=== PATIENT | male | born 1965 | race Caucasian/White ===

== ENCOUNTER 2019-06-15 10:46 | Outpatient (CLI) | payer OTHER, SELFPAY ==
--- NOTE | ~2019-06-15 | XR_ITS ---
EXAMINATION: XR thoracic spine 3V DATE: 06/15/2019 11:06 INDICATION: Dorsalgia, unspecified. TECHNIQUE: 3 views of thoracic spine were obtained. COMPARISON: Chest 2 views 03/21/2012 FINDINGS: There is 7 degrees levocurvature of thoracic spine. Vertebral body heights are normal. Ther e are endplate osteophytes at most levels. There is mildly decreased disc height at multiple levels i n lower thoracic spine. Median sternotomy wires and mediastinal surgical clips are seen, likely from prior coronary artery bypass grafting. IMPRESSION: 1. Mild thoracic spondylosis. Reviewed, dictated and finalized at location A. 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
--- NOTE | ~2019-06-15 | XR_ITS ---
EXAMINATION: XR_CERV2-3V_CR DATE: 06/15/2019 11:06 INDICATION: Neck pain. TECHNIQUE: 3 views of cervical spine were obtained. COMPARISON: Cervical spine MRI 04/23/2014 FINDINGS: There is 4 degrees dextrocurvature of cervical spine. There is kyphosis of lower cervical s pine. Vertebral body heights are normal. There is mildly decreased disc height at C4-C5, moderately d ecreased disc height at C5-C6, and severely decreased disc height at C6-C7. There is multilevel uncov ertebral joint osteoarthritis, severe bilaterally at C5-C6 and C6-C7. There is multilevel facet joint osteoarthritis, severe on the left at C4-C5. There is mild central canal stenosis at C4-C5, C5-C6, a nd C6-C7. No prevertebral soft tissue swelling. Median sternotomy wires and mediastinal surgical clip s are seen, likely from prior coronary artery bypass grafting. IMPRESSION: 1. Severe cervical spondylosis, stable from 04/23/2014. Reviewed, dictated and finalized at location A. 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
== END 2019-06-15 10:47 | disposition home or self-care (01) ==
LOC: ANHIMG 10:52
PROVIDERS: PCP Internal Medicine; Visit Provider Nurse Practitioner
DX: M54.2 Cervicalgia (principal); M54.9 Dorsalgia, unspecified; M47.814 Spondylosis without myelopathy or radiculopathy, thoracic region; M47.812 Spondylosis without myelopathy or radiculopathy, cervical region
CPT/HCPCS: 72040; 72072

== ENCOUNTER 2020-02-23 14:00 | Outpatient (CLI) | payer OTHER, SELFPAY ==
--- NOTE | ~2020-02-23 | US_ITS ---
EXAMINATION: US art doppler w tong BROOKE EXAM DATE: 02/23/2020 14:59 INDICATION: Claudication. Right-sided endarterectomy. Cardiac bypass. Right foot numbness. TECHNIQUE: Segmental pressures and plethysmographic and Doppler waveforms of the brachial and lower e xtremity arteries were obtained. There is no prior study for comparison. FINDINGS: Right and left brachial artery pressures of 124 mm Hg and 132 mm Hg, respectively, are concordant (no rmal difference <= 30 mmHg). The right and left thigh-brachial pressure indices are 0.88, 1.13, resp ectively (normal > 1.2). RIGHT LEG: The ankle-brachial index (YASH) is 0.60 (normal >= 0.9-1). The great toe-brachial index (TBI) is 0.61 (normal >= 0.65). The lower extremity ratios, segmental pressure gradients as follows; Proximal superficial femoral artery:- 0.88 (116 mmHg). Distal superficial femoral artery: ----- 0.80 (106 mmHg). Popliteal: 0.64 (84 mmHg). Dorsalis pedis: 0.40 (53 mmHg). Posterior tibial: 0.60 (79 mmHg). (Normal gradients <= 20-30 mmHg between adjacent levels on the same leg or the same levels on the two legs). Arterial waveforms are essentially monophasic. LEFT LEG: The ankle-brachial index (YASH) is 0.95 (normal >= 0.9-1). The great toe-brachial index (TBI) is 0.57 (normal >= 0.65). The lower extremity ratios, segmental pressure gradients as follows; Proximal superficial femoral artery:- 1.13 (149 mmHg). Distal superficial femoral artery: ----- 1.09 (144 mmHg). Popliteal: 0.90 (119 mmHg). Dorsalis pedis: 0.58 (76 mmHg). Posterior tibial: 0.95 (125 mmHg). (Normal gradients <= 20-30 mmHg between adjacent levels on the same leg or the same levels on the two legs). Arterial waveforms are biphasic. IMPRESSION: 1. Right ankle-brachial index 0.60, moderately decreased. Monophasic waveforms. Possibility of inflo w stenosis (iliac). 2. Left ankle-brachial index 0.95. Biphasic waveforms. 3. Segmental pressures as above. Reviewed, dictated and finalized at location A. IMPRESSION: 1. Right ankle-brachial index 0.60, moderately decreased. Monophasic waveforms . Possibility of inflow stenosis (iliac). 2. Left ankle-brachial index 0.95. Biphasic waveforms. 3. Segmental pressures as above.
== END 2020-02-23 14:01 | disposition home or self-care (01) ==
LOC: ANHIMG 14:04
PROVIDERS: PCP Internal Medicine; Visit Provider Internal Medicine Cardiovascular Disease
DX: I73.9 Peripheral vascular disease, unspecified (principal)
CPT/HCPCS: 93923

== ENCOUNTER 2020-11-30 07:15 | Outpatient (CLI) | payer OTHER, SELFPAY ==
[2020-11-30 08:26] LABS: Basophils Absolute Auto 0.1 K/mm3 (0.0-0.1); Basophils Percent Auto 1.4 % (0.2-1.2); Eosinophils Absolute Auto 0.5 K/mm3 (0-0.3); Eosinophils Percent Auto 6.5 % (0-4.4); Hematocrit 44.4 % (42.0-52.0); Hemoglobin 15.3 g/dL (14.0-18.0); Immature Granulocyte Absolute 0.04 K/mm3 (0.00-0.031); Immature Granulocyte Percent A 0.6 % (0-0.5); Lymphocytes Percent Auto 31.7 % (18.3-44.2); Mean Corpuscular HGB Conc 34.5 g/dl (32-36); Mean Corpuscular Hemoglobin 32.4 pg (26-34); Mean Corpuscular Volume 94.1 fl (80-100); Mean Platelet Volume 8.8 fl (7.4-10.4); Monocytes Absolute Auto 0.5 K/mm3 (0.1-0.6); Monocytes Percent Auto 7.6 % (2.6-8.5); Neutrophils Absolute Auto 3.6 K/mm3 (1.3-6.7); Neutrophils Percent Auto 52.2 % (45.5-73.1); Platelet Count Result 249 k/mm3 (150-375); Red Blood Count 4.72 M/mm3 (4.6-6.20); Red Cell Distribution Width 12.1 % (11.5-14.5); White Blood Count 6.9 K/mm3 (4.5-10.0)
[2020-11-30 10:27] LABS: Alanine Aminotransferase 36 U/L (4-50); Albumin Level 4.2 g/dL (3.5-5.1); Alkaline Phosphatase 87 U/L (38-126); Anion Gap 9 mmol/L (8-16); Aspartate Amino Transferase 27 U/L (17-59); Bilirubin,Total 0.5 mg/dL (0.2-1.3); Blood Urea Nitrogen 16 mg/dL (9-20); Calcium 9.9 mg/dL (8.4-10.2); Carbon Dioxide 23 mmol/L (22-30); Chloride 104 mmol/L (98-107); Cholesterol 173 mg/dL (0-200); Estimated Glomerular Filt Rate > 60; Glucose 104 mg/dL (65-110); HDL Direct 49 mg/dL; Potassium 4.5 mmol/L (3.4-5.0); Sodium 136 mmol/L (137-145); Triglycerides 181 mg/dL (<150)
[2020-11-30 10:46] LABS: LDL Cholesterol Direct 91 mg/dL
[2020-12-02 20:13] LABS: Prostate Specific Antigen 0.4 ng/mL (< OR = 4.0)
== END 2020-11-30 07:16 | disposition home or self-care (01) ==
PROVIDERS: PCP Internal Medicine; Visit Provider Nurse Practitioner
DX: I10 Essential (primary) hypertension (principal); Z12.5 Encounter for screening for malignant neoplasm of prostate
CPT/HCPCS: 36415; 80053; 80061; 84153; 85025; G0103

== ENCOUNTER 2021-12-01 00:53 | Day surgery (SDC) | payer OTHER, SELFPAY ==
[2021-11-21 14:41] VITALS: BMI 29.9
[2021-12-01 09:48] VITALS: BP 150/99; PULSE 76; RESP 19; TEMP 36.5; O2SAT 96
[2021-12-01] MEDS: LACTATED RINGERS 1,000 ML 150 ML IV CONT (09:54)
--- NOTE | 2021-12-01 10:25 | P.PNAN_ITS ---
Anes - Initial Pre Proc Eval Procedure: Operation Date: 12/01/21 11:00 Proposed Procedures p Esophagogastroduodenoscopy - Master Pierson MD Date/Time: 12/01/21 10:25 Surgeon: Master Pierson MD Pre Op Diagnosis: GERD Patient Data Age: 56 Gender: M Height: 1.8 m Weight: 97.8 kg Last Vital Signs Temp 97.7 F 12/01/21 09:48 Pulse 76 12/01/21 09:48 Resp 19 12/01/21 09:48 BP 150/99 H 12/01/21 09:48 Pulse Ox 96 12/01/21 09:48 O2 Del Method Room Air 12/01/21 09:48 Allergies Allergy/AdvReac Type Severity Reaction Status Date / Time cilostazol Allergy Intermediate Palpitation Verified 11/21/21 14:44 s Home Medications Medication Instructions Recorded Confirmed Type amlodipine 5 mg-atorvastatin 40 mg 1 tablet PO DAILY 06/12/19 11/21/21 History tablet lisinopril 20 mg tablet 20 mg PO DAILY 06/12/19 11/21/21 History metoprolol tartrate 25 mg tablet 25 mg PO BID 06/12/19 11/21/21 History aspirin 81 mg tablet,delayed 81 mg PO DAILY 10/01/21 11/21/21 History release (Adult Low Dose Aspirin) nitroglycerin 0.4 mg sublingual 0.4 mg sublingual Q5M PRN Chest 10/01/21 11/21/21 History tablet Pain rivaroxaban 2.5 mg tablet 2.5 mg PO BID 10/01/21 11/21/21 History Pepcid AC 20 mg PO PRN PRN Acid Reflux 11/21/21 11/21/21 History Patient hx anesthesia problems: none Family hx anesthesia problems: none Results Review: All pre-operative results and documents have been reviewed as part of the pre- operative evaluation. [facility] Past Medical History Medical History (Updated 10/01/21 @ 15:13 by Sabina Leigh NP) CAD (coronary artery disease) Hyperlipidemia Hypertension Stenosis of artery of left lower extremity Tobacco abuse Surgical History Surgical History H/O endarterectomy 03/2018 H/O heart bypass surgery Triple 2005 Hx of arthroscopy of knee 2005 Family History Family History Mother Patient's mother is in good health Other Family history of cardiovascular disease Hypertension Social History Social History Smoking packs per day: 1 Smoking cigarettes per day: 20.0 Years smoked: 40 Smoking pack-years: 40.00 Smoking status: Current every day smoker Tobacco type: cigarettes Alcohol intake: current Drinks per week: 42 Alcohol use details: BEERS Substance use: never Substance use type: does not use Living arrangements: with family Spiritual care concerns: No Anes - Eval Final PreProcedure Day of Procedure 12/01/21 10:25 Patient weight: obese Airway: Mallampati scale class II ASA classification: III Anesthesia type and monitoring: general GIVS Results Review: All pre-operative results and documents have been reviewed as part of the pre- operative evaluation. Informed Consent: The patient's anesthetic plan and its attendant risks and benefits were discussed with the patient/family/POA. Questions were solicited and answers provided to the satisfaction of the patient/family/POA.
--- NOTE | 2021-12-01 10:31 | PM.HPGS ---
History of Present Illness History of Present Illness Consent: Risks, benefits, and alternatives have been discussed and questions answered. Patient agrees to proceed with procedure. Chief complaint: GERD Narrative: Frank Jordan is a 56 year old male with intermittent dysphagia to solids, never had egd. Took ppi briefly that helped with indigestion part Review of Systems Constitutional: Constitutional: Denies headache(s) and Denies weakness Eyes: Eyes: Denies blurry vision ENT: Reports Normal hearing present, Denies headache(s) and Denies neck pain Cardiovascular: Cardiovascular: Denies chest pain and Denies dyspnea Respiratory: Respiratory: Denies dyspnea Gastrointestinal: Gastrointestinal: Reports no additional gastrointestinal complaints Genitourinary: Genitourinary: Denies dysuria Musculoskeletal: Musculoskeletal: Denies neck pain Integumentary/Breasts: Skin/Breast: Denies dry skin Neurologic: Reports Normal hearing present, Denies headache(s) and Denies weakness Psychiatric: Psychiatric: Denies anxiety Endocrine: Endocrine: Denies change in body appearance Hematologic/Lymphatic: Hematologic/Lymphatic: Denies easy bleeding Allergic/Immunologic: Allergic/Immunologic: Denies urticaria PMFSH Past Medical History Medical History (Updated 10/01/21 @ 15:13 by Sabina Leigh NP) CAD (coronary artery disease) Hyperlipidemia Hypertension Stenosis of artery of left lower extremity Tobacco abuse Surgical History Surgical History H/O endarterectomy 03/2018 H/O heart bypass surgery Triple 2005 Hx of arthroscopy of knee 2004 Family History Family History Mother Patient's mother is in good health Other Family history of cardiovascular disease Hypertension Social History Social History Smoking packs per day: 1 Smoking cigarettes per day: 20.0 Years smoked: 40 Smoking pack-years: 40.00 Smoking status: Current every day smoker Tobacco type: cigarettes Alcohol intake: current Drinks per week: 42 Alcohol use details: BEERJose Martin Substance use: never Substance use type: does not use Living arrangements: with family Spiritual care concerns: No Meds Home Medications and Allergies Home Medications Medication Instructions Recorded Confirmed Type amlodipine 5 mg-atorvastatin 40 mg 1 tablet PO DAILY 06/12/19 11/21/21 History tablet lisinopril 20 mg tablet 20 mg PO DAILY 06/12/19 11/21/21 History metoprolol tartrate 25 mg tablet 25 mg PO BID 06/12/19 11/21/21 History aspirin 81 mg tablet,delayed 81 mg PO DAILY 10/01/21 11/21/21 History release (Adult Low Dose Aspirin) nitroglycerin 0.4 mg sublingual 0.4 mg sublingual Q5M PRN Chest 10/01/21 11/21/21 History tablet Pain rivaroxaban 2.5 mg tablet 2.5 mg PO BID 10/01/21 11/21/21 History Pepcid AC 20 mg PO PRN PRN Acid Reflux 11/21/21 11/21/21 History Allergies Allergy/AdvReac Type Severity Reaction Status Date / Time cilostazol Allergy Intermediate Palpitation Verified 11/21/21 14:44 s Vital Signs Vital Signs - 24 hr 12/01/21 09:48 Temperature 97.7 F Pulse Rate 76 Respiratory Rate 19 Blood Pressure 150/99 H Pulse Oximetry 96 Oxygen Delivery Room Air Exam Const: General: comfortable and no acute distress HENMT: General nose exam: Normal nares present Eyes: General: appearance normal, both eyes and all related structures Neck: Neck: no JVD Resp: Auscultation: clear to auscultation bilaterally Cardio: Rate: regular rate Rhythm: regular rhythm GI: Inspection: non-distended GI Palp: Yes Soft to palpation Skin: General skin exam: normal color Neuro: General: gait normal Speech: normal speech Extrem: General: normal to inspection Psych: Mental Status: mental status grossly normal Assessment and
[2021-12-01 10:52] VITALS: BP 114/71; PULSE 76; RESP 24; O2SAT 97
[2021-12-01 11:02] VITALS: BP 118/82; PULSE 73; RESP 17; O2SAT 96
[2021-12-01 11:12] VITALS: BP 128/91; PULSE 72; RESP 20; O2SAT 97
== END 2021-12-01 11:20 | disposition home or self-care (01) ==
PROVIDERS: PCP Internal Medicine; Visit Provider Internal Medicine Gastroenterology
PROC: 0DJ08ZZ Inspection of Upper Intestinal Tract, Via Natural or Artificial Opening Endoscopic (ICD-10-PCS; CPT 43235; principal; 2021-12-01 11:00)
DX: R13.19 Other dysphagia (principal); K21.00 Gastro-esophageal reflux disease with esophagitis, without bleeding; K44.9 Diaphragmatic hernia without obstruction or gangrene; K22.2 Esophageal obstruction; Z95.1 Presence of aortocoronary bypass graft; F17.210 Nicotine dependence, cigarettes, uncomplicated; Z79.01 Long term (current) use of anticoagulants; Z79.82 Long term (current) use of aspirin; I25.118 Atherosclerotic heart disease of native coronary artery with other forms of angina pectoris; E78.5 Hyperlipidemia, unspecified; I10 Essential (primary) hypertension; E66.9 Obesity, unspecified; Z68.30 Body mass index [BMI] 30.0-30.9, adult
CPT/HCPCS: 43239; 43249; 88305; C1726; J2704; J7120

== ENCOUNTER 2023-07-21 10:59 | Outpatient (CLI) | payer OTHER, SELFPAY ==
[2023-07-21 15:02] LABS: Basophils Absolute Auto 0.1 K/mm3 (0.0-0.1); Basophils Percent Auto 1.5 % (0.2-1.2); Eosinophils Absolute Auto 0.9 K/mm3 (0-0.3); Eosinophils Percent Auto 11.6 % (0-4.4); Hemoglobin 15.7 g/dL (14.0-18.0); Immature Granulocyte Absolute 0.02 K/mm3 (0.00-0.031); Immature Granulocyte Percent A 0.3 % (0-0.5); Lymphocytes Absolute Auto 2.54 K/mm3 (0.9-3.2); Lymphocytes Percent Auto 34.7 % (18.3-44.2); Mean Corpuscular HGB Conc 33.4 g/dl (32-36); Mean Corpuscular Volume 98.7 fl (80-100); Mean Platelet Volume 9.3 fl (7.4-10.4); Monocytes Absolute Auto 0.6 K/mm3 (0.1-0.6); Monocytes Percent Auto 8.3 % (2.6-8.5); Neutrophils Absolute Auto 3.2 K/mm3 (1.3-6.7); Neutrophils Percent Auto 43.6 % (45.5-73.1); Platelet Count Result 274 k/mm3 (150-375); Red Blood Count 4.76 M/mm3 (4.6-6.20); Red Cell Distribution Width 12.1 % (11.5-14.5); White Blood Count 7.3 K/mm3 (4.5-10.0)
[2023-07-21 18:07] LABS: Alanine Aminotransferase 34 U/L (6-50); Albumin Level 4.4 g/dL (3.5-5.1); Alkaline Phosphatase 99 U/L (38-126); Anion Gap 5 mmol/L (8-16); Aspartate Amino Transferase 58 U/L (17-59); Bilirubin,Total 0.8 mg/dL (0.2-1.3); Blood Urea Nitrogen 12 mg/dL (9-20); Calcium 9.8 mg/dL (8.4-10.2); Carbon Dioxide 27 mmol/L (22-30); Chloride 103 mmol/L (98-107); Cholesterol 134 mg/dL (0-200); Estimated Glomerular Filt Rate > 60; Glucose 90 mg/dL (65-110); HDL Direct 37 mg/dL; Potassium 4.1 mmol/L (3.4-5.0); Sodium 135 mmol/L (137-145); Triglycerides 143 mg/dL (<150)
[2023-07-21 18:19] LABS: LDL Cholesterol Direct 84 mg/dL
[2023-07-23 14:26] LABS: Prostate Specific Antigen 0.7 ng/mL (< OR = 4.0)
[2023-07-28 08:10] LABS: Apolipoprotein B 70 mg/dL (<90)
== END 2023-07-21 11:00 | disposition home or self-care (01) ==
LOC: ANHGOSHLAB 11:01
PROVIDERS: PCP Internal Medicine; Visit Provider Internal Medicine
DX: Z12.5 Encounter for screening for malignant neoplasm of prostate (principal); I25.10 Atherosclerotic heart disease of native coronary artery without angina pectoris; I10 Essential (primary) hypertension
CPT/HCPCS: 36415; 80053; 80061; 82172; 84153; 85025; G0103

== ENCOUNTER 2023-08-02 14:49 | Outpatient (CLI) | payer OTHER, SELFPAY ==
--- NOTE | ~2023-08-02 | CT_ITS ---
CT Scan of the Chest without Contrast: Clinical Indication: Lung cancer screening, tobacco use Technique: Contiguous sections were acquired throughout the chest without intravenous contrast. Dose reduction technique was used on this scan by utilizing automated exposure control and iterative recon struction technique. The dose-length product (DLP) was 154.14 mGy-cm. Findings: There is no evidence of any significant mediastinal, hilar or axillary lymphadenopathy. Evidence of p rior CABG. There is no evidence of pleural or pericardial effusion. There is mild subpleural reticulation and minimal paraseptal emphysematous change. There is right api jennifer scarring and focal areas of pleural thickening at the right lung apex. Images through the upper abdomen reveal no abnormalities. Impression: Lung RADS 2: Benign appearance. 12 month follow-up screening CT advised. Reviewed, dictated and finalized at [facility]. Impression: Lung RADS 2: Benign appearance. 12 month follow-up screening CT advised.
== END 2023-08-02 14:50 | disposition home or self-care (01) ==
PROVIDERS: PCP Internal Medicine; Visit Provider Internal Medicine
DX: Z12.2 Encounter for screening for malignant neoplasm of respiratory organs (principal); F17.210 Nicotine dependence, cigarettes, uncomplicated
CPT/HCPCS: 71271

== ENCOUNTER 2025-01-24 14:17 | Outpatient (CLI) | payer OTHER, SELFPAY ==
--- OUTSIDE RECORDS SUMMARY | 2025-01-24 14:19 | XMS_ITS | Clinical Summary ---
Author Organization [facility] at the [facility] Address [address] [place] [address] Care Team Providers Care Medical Office Receptionist Assistant Name Role Phone Ovidio Martinez DO Primary Care Provider + [phone] Ovidio Martinez DO Unavailable [phone] Marc Tejada MD Unavailable [phone] Mihai Hernadez MD Unavailable Allergies Active Allergy Reactions Criticality Noted Date Comments Cilostazol Palpitations Low 05/13/2021 Lisinopril Palpitations Low 12/03/2022 Medications aspirin 81 mg enteric coated tablet Take 1 tablet (81 mg total) by mouth daily Active metoprolol tartrate (LOPRESSOR) 50 mg immediate release tabletIndicatio ns: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,Chest pain, unspecified type Take 1 tablet (50 mg total) by mouth 2 (two) times a day 180 tablet 3 10/07/19 24 026 Active calcium carbonate (TUMS) 500 mg (200 mg elemental calcium) chewable tablet Take 1 tablet/chew tab (500 mg total) by mouth as needed for indigestion or heartburn Active nitroglycerin (NITROSTAT) 0.[address] 1 tablet (0.4 mg total) under the tongue every 5 (five) minutes as needed for chest pain 45 tablet 3 07/18/19 25 Active losartan (COZAAR) 25 mg tabletIndicatio ns:Essential hypertension Take 1 tablet (25 mg total) by mouth daily 90 tablet 3 10/11/19 25 026 Active amlodipine-ator vastatin (CADUET) 5-40 mg per tablet TAKE 1 TABLET DAILY 90 tablet 2 01/03/20 25 Active clopidogreL (PLAVIX) 75 mg tablet TAKE 1 TABLET BY MOUTH EVERY DAY 90 tablet 3 01/09/20 25 Active clopidogreL (PLAVIX) 75 mg tablet Take 1 tablet (75 mg total) by mouth daily 30 tablet 11 01/16/20 24 025 Discontinued amlodipine-ator vastatin (CADUET) 5-40 mg per tablet TAKE 1 TABLET DAILY 90 tablet 09/19/19 25 025 Discontinued Active Problems Problem Noted Date Diagnosed Date Atherosclerotic PVD with intermittent claudicati on 12/30/2023 Hx of CABG 10/14/2023 PVD (peripheral vascular disease) 09/01/2023 Assessment & Plan (01/31/2024 7:41 AM CDT): 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 Has some expected postop groin pain. We will keep the guillermina in place for 1 more week, noninvasive testing ordered for new baseline. We will eventually need intervention to the right lower extremity however he would like to continue working throughout the fall if possible. Continue ASA Plavix statin therapy. Assessment & Plan (12/31/2023 10:29 AM CDT): Left lower extremity life-limiting claudication with functional occlusion of the left common femoral artery, risks benefits alternatives to left common femoral artery endarterectomy with patch angioplasty and retrograde iliac stenting discussed, risks including bleeding, infection, perforation, nerve injury contrast induced nephropathy, dissection, thrombosis, distal embolization and need further surgery. Wished proceed. Assessment & Plan (10/19/2023 1:35 PM CDT): Status post diagnostic angiogram, needs a left common femoral artery endarterectomy with retrograde iliac stent, overall would really like to hold off if possible for the next 6-8 weeks while he finishes some things at work. We will follow-up in 2 months for repeat evaluation. Atypical chest pain 11/19/2021 Atherosclerosis of quinault ar ace of both lower extremities with intermittent claudication 05/15/2021 Assessment & Plan (08/24/2024 9:19 AM CDT): Patient's symptoms are non limiting at this time, in addition patient continues to smoke. Will hold on any surgical procedural intervention at this point Assessment & Plan (02/23/2024 9:36 AM CDT): Impression: Patient is status post left external iliac, common femoral, superficial femoral endarterectomy with patch angioplasty with iliac stent placement. Patient has stable non disabling claudication to the right lower extremity, ischemic rest pain or ulcerations. Patient also denies any claudication to the left lower extremity. Left groin incision has healed. Plan: Continue ongoing risk factor modifications. -continue dual antiplatelet therapy of aspirin and Plavix. -patient to follow-up in 6 months for re-evaluation with repeat lower extremity arterial duplex. Encouraged patient to make a sooner appointment if he develops any disabling claudication, ischemic rest pain or ulcerations to his lower extremity. Patient voices understanding. Assessment & Plan (02/04/2024 10:59 AM CDT): Impression: Patient is status post left external iliac, common femoral, superficial femoral endarterectomy with patch angioplasty with iliac stent placement. He denies any symptoms of claudication, ischemic rest pain or ulcerations to his lower extremity. [place] are intact to the left groin without any concerns for infection. Plan: Guillermina removed at bedside. Superficial skin dehiscence noted after staple removal. - Recommend daily dressing changes with triple antibiotic ointment and dry gauze to the left groin. -Patient has a scheduled appointment with a ultrasound on 02/15/2024. Recommend patient to keep this appointment. -We will discuss return to work and restrictions if there are any at this time. Assessment & Plan (08/30/2023 2:24 PM CDT): Impression: Patient complains of claudication pain to his lower extremities with his left lower extremity worse than the right. He denies any ischemic rest pain. Patient has significant changes noted to his lower extremity arterial Doppler of the left lower extremity from triphasic waveforms 1 year ago to biphasic and monophasic waveforms. No open ulcerations are noted. Plan: Patient was seen and evaluated with Dr. Breana Hernadez. -recommend left lower extremity angiogram with possible intervention. Risks of the procedure communicate with the patient to include bleeding, injury, infection, requiring further surgery, limb loss and . Patient voices understanding of these risks and wishes to proceed. 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 No complaint of ischemic rest pain. No progressive stenosis on lower extremity arterial Doppler surveillance. Plan: No surgical intervention currently needed. Recommend ongoing risk factor modifications and follow-up in 1 year for re-evaluation with repeat lower extremity arterial Doppler surveillance. Bilateral carotid artery stenosis 05/15/2021 Assessment & Plan (08/30/2023 2:21 PM CDT): Impression: patient is status post carotid endarterectomy. Patient remains asymptomatic. Less than 50% stenosis noted to bilateral carotid arteries. Plan: Continue ongoing risk factor modifications. - patient to follow-up in 1 year for re-evaluation with carotid duplex. Assessment & Plan (05/15/2021 10:25 AM DEHYDRATION UNIT OPERATOR): Impression: Asymptomatic bilateral carotid stenosis. He is status post right carotid endarterectomy in the past. Plan: No surgical intervention currently needed. Recommend ongoing risk factor modifications and follow-up in 1 year for re-evaluation with repeat carotid duplex surveillance. Claudication 02/09/2020 Amaurosis fugax, right eye 03/10/2018 Stenosis of right carotid artery 06/14/2017 Assessment & Plan (10/21/2018 11:01 AM CDT): Patient doing well status post right carotid endarterectomy performed on 03/17/2018. No stenosis noted on left side. Continues to be asymptomatic. Plan: Follow-up in 1 year for re-evaluation with bilateral carotid artery duplex HTN (hypertension), benign 12/08/2016 Assessment & Plan (12/31/2023 10:29 AM CDT): Stable continue metoprolol. Assessment & Plan (08/30/2023 2:24 PM CDT): Impression: Chronic stable. Plan: Continue Caduet, losartan and metoprolol. Assessment & Plan (05/15/2021 10:06 AM DEHYDRATION UNIT OPERATOR): Impression: Stable chronic hypertension. Plan: Medications reviewed and recommend continuing daily antihypertensive regimen as directed by patient's primary care physician. Assessment & Plan (10/21/2018 11:01 AM CDT): Stable blood pressure control his medication. Plan: Further management as per primary care provider. 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 Educated the patient on the importance of smoking cessation as relates to health benefits Hyperlipidemia LDL goal <70 09/06/2015 Overview (08/08/2016): Hyperlipidemia LDL goal <70 Assessment & Plan (12/31/2023 10:29 AM CDT): Recommend statin therapy. Assessment & Plan (10/19/2023 1:36 PM CDT): Stable continue Lipitor. Assessment & Plan (08/30/2023 2:25 PM CDT): Impression: Chronic stable. Plan: Continue Caduet. Chronic ischemic heart disease 03/07/2014 Overview (08/07/2016): Chronic ischemic heart disease Essential hypertension 03/07/2014 Overview (08/07/2016): Essential hypertension Assessment & Plan (10/19/2023 1:35 PM CDT): Stable continue amlodipine atorvastatin Assessment & Plan (05/15/2021 10:07 AM DEHYDRATION UNIT OPERATOR): Impression: Stable chronic hypertension. Plan: Medications reviewed and recommend continuing daily antihypertensive regimen as directed by patient's primary care physician. 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; Essential hypertension from Last 3 Months Immunizations Immunization Administration Dates Next Due Smackages (J&J) SARS-CoV-2 Vaccination 10/07/2020 Surgical History Surgery Date Site/Laterality Comments KNEE ARTHROSCOPY Bilateral Right Knee Surgery, Arthroscopic CORONARY ARTERY BYPASS GRAFT Coronary Artery Bypass Graft- 20 years ago 3 bypass CAROTID ENARTERECTOMYY 03/17/2018 Right CARDIAC CATHETERIZATION 10/07/2023 OTHER SURGICAL HISTORY 10/14/2023 AORTOGRAM ABDOMINAL S&I INGUINAL HERNIA REPAIR Bilateral with mesh COLONOSCOPY ESOPHAGEAL DILATION Medical History Medical History Date Comments Hyperlipemia Hypertension Carotid stenosis Coronary artery disease S/P CABG (coronary artery bypass graft) GERD (gastroesophageal reflux disease) not on medication PVD (peripheral vascular disease) Wears glasses Claudication Dental infection on antibiotics Family History Medical History Relation Name Comments Coronary artery disease Father Coronary artery disease Mother Abisai nary Artery Disease; Relation Name Status Comments Father Mother Alive Social History Tobacco Use Types Packs/Day Years Used Date Smoking Tobacco: Heavy Smoker Cigarettes Smokeless Tobacco: Never Tobacco Cessation:Ready to Q uit: Not Asked; Counseling Given: Not Answered Comments:Smoking History Packs/day: 1 Packs Alcohol Use Standard Drinks/Week Comments Yes 15 (1 standard drink = 0.6 oz pu re alcohol) [facility] Utilities Answer Date Recorded In the past 12 months has [facility] [employer], [employer], or [employer] threatened to shut off services in your home? No 01/14/2024 Social Connection and Isolation Panel Answer Date Recorded In a typical week, how many times do you talk on the phone with family, friends, or neighbors? More than three times a week 01/14/2024 How often do you get togethe r with friends or relatives? More than three times a week 01/14/2024 How often do you attend chur ch or muslim services? Never 01/14/2024 Do you belong to any clubs o r organizations such as oriental orthodox groups, unions, fraternal or athletic groups, or school groups? No 01/14/2024 How often do you attend meet ings of the clubs or organizations you belong to? Never 01/14/2024 Are you , , di vorced, , never , or living with a partner? 01/14/2024 AUDIT-C Answer Date Recorded Q1: How often do you have a drink containing alc ohol? 2-3 times a week 01/13/2024 Q2: How many drinks containi ng alcohol do you have on a typical day when you are drinking? 5 or 6 01/13/2024 Q3: How often do you have si x or more drinks on one occasion? Weekly 01/13/2024 Overall Financial Resource Strain (CARDIA) Answe r Date Recorded How hard is it for you to pa y for the very basics like food, housing, medical care, and heating? Not hard at all 01/14/2024 Hunger Vital Sign Answer Date Recorded Within the past 12 months, y ou worried that your food would run out before you got the money to buy more. Never true 01/14/20 24 Within the past 12 months, t he food you bought just didn't last and you didn't have money to get more. Never true 01/14/2024 PRAPARE - Transportation Answer Date Re corded In the past 12 months, has l ack of transportation kept you from medical appointments or from getting medications? No 01/01 In the past 12 months, has l ack of transportation kept you from meetings, work, or from getting things needed for daily living? No 01/14/2024 Housing Stability Vital Sign Answer Darek e Recorded In the last 12 months, was t here a time when you were not able to pay the mortgage or rent on time? No 01/14/2024 In the past 12 months, how m any times have you moved where you were living? 0 01/14/2024 At any time in the past 12 m [facility], were you homeless or living in a penitentiary (including now)? No 01/14/2024 Personal Safety Answer Date Recorded Have you ever been in or are you currently in a harmful physical or emotional relationship or is someone making you feel afraid or unsafe? Denies 01/13/2024 Sex and Gender Information Value Date Recorded Sex Assigned at Not on file Legal Sex Male 2:12 AM DEHYDRATION UNIT OPERATOR Gender Identity Not on file Sexual Orientation Not on file Obstetrics History Last Filed Vital Signs Vital Sign Reading Time Taken Comments Blood Pressure 140/84 10/10/2024 2:08 PM CDT Pulse 91 10/10/2024 2:08 PM CDT Temperature 36.7 C (98.1 F) 01/15/2024 7:42 AM CDT Respiratory Rate 18 01/15/2024 7:42 AM CDT Oxygen Saturation 96% 10/10/2024 2:08 PM CDT Inhaled Oxygen Concentration - - Weight 99.8 kg (220 lb) 10/10/2024 2:08 PM CDT Height 182.9 cm (6') 10/10/2024 2:08 PM CDT Body Mass Index 29.84 10/10/2024 2:08 PM CDT Plan of Treatment Health Maintenance Due Date Last Done Comments Colon Cancer Screening-Colonoscopy 1965 Depression Screening 1965 Hepatitis C Screening 1965 Prostate Cancer Screening-PSA 1965 DTaP/Tdap/Td Vaccine (1 - Tdap) 1976 Hepatitis B Screening 11/28/1983 Regular Well Visit/Exam 18-64 11/28/1983 Pneumococcal vaccine <65 (1 of 2 - PCV) 1984 Zoster Vaccine (1 of 2) 11/28/2015 Covid-19 Vaccine (2 - season) 01/01/202510/2020 Influenza Vaccine (#1) 2025 Medical Devices Implanted Type Area Trumpet Player Device Identifier Shelf Expiration Date Model / Serial / Lot Mesh Bilateral: Abdomen Wire Sternum [employer] Patch Vascuguard 0.88cm [id number] - [id number] Implanted:Qty: 1 on 01/13/2024 by Mihai Hernadez MD at [facility] Left: [employer] [facility] [id number] 06/28/2025 [id number] / [id number] [employer] Viabahn 8mm 10cm 75cm Flexible Self Expand Radiopaque Stent [id number] - [id number] - [id number] Implanted:Qty: 1 on 01/13/2024 by Mihai Hernadez MD at [facility] Left: [employer] [id number] 11/13/2025 [id number] / [id number] / Procedures Procedure Name Priority Date/Time Associated Diagnosis Comments TRANSTHORACIC ECHO (TTE) COMPLETE W DOPPLER/CF Routine 12/01/2024 3:20 PM CDT 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, [address], [place] [address] P:[phone] P:[phone] Echocardiographic Report Patient Name: SOLOMON JORDAN A : 1965 Study Date: 12/01/2024 2:43:52 PM Gender: M Scraper Meat: FRANK Location: [facility] Ref Provider: MARC TEJADA Height(Cm): 183 BSA: 2.25 Weight(Kg): 99.8 Heart Rate: 80 BP: 140 / 84 Quality: Good Order Provider: MARC TEJADA PROCEDURES: Echocardiographic Report: Transthoracic echocardiogram with complete 2D, M-Mode, color Doppler examination and Definity contrast. INDICATIONS: I25.118 Atherosclerotic heart disease of quinault coronary artery with other forms of angina pectoris and I10 Essential (primary) hypertension. MEASUREMENTS: 2D/MM Value Range Doppler Value Range EF Mod BP 53 % [ 52 - 72 ] AV Mean PG 4 mmHg EF Teich MM 54 % [ 52 - 72 ] AV Peak Tejinder 1.33 m/s [ 1.00 - 1.70 ] Estimated EF 60 % AV Peak PG 7 mmHg LVIDd 2D 5.49 cm [ 4.20 - 5.80 ] AV VTI 26.33 cm LVIDd MM 5.73 cm [ 4.20 - 5.80 ] LVOT Peak Tejinder 1.06 m/s [ 0.70 - 1.10 ] LVIDs 2D 4.36 cm [ 2.50 - 4.00 ] LVOT VTI 20.26 cm LVIDs MM 4.11 cm [ 2.50 - 4.00 ] MV E Peak Tejinder 0.61 m/s [ 0.60 - 1.30 ] LVPWd 2D 0.93 cm [ 0.60 - 1.00 ] MV A Peak Tejinder 0.82 m/s [ 1.00 - 1.20 ] LVPWd MM 0.98 cm [ 0.60 - 1.00 ] MV Decel Time 218 msec [ 104 - 258 ] IVSd 2D 1.00 cm [ 0.60 - 1.00 ] PV Peak Tejinder 1.01 m/s [ 0.40 - 0.80 ] IVSd MM 1.01 cm [ 0.60 - 1.00 ] RV S` 0.08 m/s LA Dimension MM 4.53 cm [ 3.00 - 4.00 ] Lateral E` 0.14 m/s [ 0.10 - 0.15 ] AoR Diam MM 4.07 cm [ 3.10 - 3.70 ] Septal E` 0.11 m/s [ 0.08 - 0.15 ] LA Volume 44.79 ml [ 18.00 - 58.00 ] E` 0.12 m/s LA Volume Index 20 cc/m2 [ 16 - 28 ] E/E` 5 ACS MM 1.96 cm [ 1.50 - 2.60 ] Tapse 1.62 cm [ 1.71 - 5.00 ] RA Volume 26.33 ml 2D/MM Value Range Doppler Value Range - FINDINGS: Interpretation Site: Exam was interpreted at [facility]. Left Ventricle: Normal left ventricular size. Definity contrast agent used to visually enhance endocardial wall motion and contractility. Lot Number: [id number]. Normal global left ventricular systolic function. Impaired diastolic relaxation Grade I. Ejection fraction is measured at 53 %. Ejection Fraction is visually estimated to be 60 %. These segments of the LV are hypokinetic: anteroseptum segment. Right Ventricle: Normal right ventricular size. Left Atrium: The left atrium is normal in size. Right Atrium: The right atrium is normal in size. Atrial Septum: Normal atrial septum. Mitral Valve: Normal appearance of the mitral valve. Trivial regurgitation of the mitral valve. Aortic Valve: Normal appearance of the aortic valve. Tricuspid Valve: Normal appearance of the tricuspid valve. Pulmonic Valve: Pulmonic valve not well visualized. Pericardium: Normal pericardium with no significant pericardial effusion. Aorta: Normal aortic root. IVC: The IVC is not well visualized. Pulmonary Artery: Normal pulmonary artery size. CONCLUSIONS: Normal left ventricular size. Definity contrast agent used to visually enhance endocardial wall motion and contractility. Lot Number: [id number]. Normal global left ventricular systolic function. Impaired diastolic relaxation Grade I. Ejection fraction is measured at 53 %. Ejection Fraction is visually estimated to be 60 %. These segments of the LV are hypokinetic: anteroseptum segment. Normal appearance of the mitral valve. Trivial regurgitation of the mitral valve. Electronically Signed By: Peter Parra MD, [facility] 12/01/2024 4:20:58 PM CDT Procedure Note Peter Parra MD - 12/01/2024 [facility] Medical Group Cardiology [facility], [address] [address] P:[phone] P:[phone] Echocardiographic Report Patient Name: SOLOMON JORDAN A : 1965 Study Date: 12/01/2024 2:43:52 PM Gender: M Scraper Meat: FRANK Location: [facility] Ref Provider: MARC TEJADA Height(Cm): 183 BSA: 2.25 Weight(Kg): 99.8 Heart Rate: 80 BP: 140 / 84 Quality: Good Order Provider: MARC TEJADA PROCEDURES: Echocardiographic Report: Transthoracic echocardiogram with complete 2D, M-Mode, color Dopplerexamination and Definity contrast. INDICATIONS: I25.118 Atherosclerotic heart disease of quinault coronary artery with otherforms of angina pectoris and I10 Essential (primary) hypertension. MEASUREMENTS: 2D/MM Value Range Doppler ValueRange EF Mod BP 53 % [ 52 - 72 ] AV Mean PG 4mmHg EF Teich MM 54 % [ 52 - 72 ] AV Peak Tejinder 1.33m/s [ 1.00 - 1.70 ] Estimated EF 60 % AV Peak PG 7mmHg LVIDd 2D 5.49 cm [ 4.20 - 5.80 ] AV VTI 26.33cm LVIDd MM 5.73 cm [ 4.20 - 5.80 ] LVOT Peak Tejinder 1.06m/s [ 0.70 - 1.10 ] LVIDs 2D 4.36 cm [ 2.50 - 4.00 ] LVOT VTI 20.26cm LVIDs MM 4.11 cm [ 2.50 - 4.00 ] MV E Peak Tejinder 0.61m/s [ 0.60 - 1.30 ] LVPWd 2D 0.93 cm [ 0.60 - 1.00 ] MV A Peak Tejinder 0.82m/s [ 1.00 - 1.20 ] LVPWd MM 0.98 cm [ 0.60 - 1.00 ] MV Decel Time 218msec [ 104 - 258 ] IVSd 2D 1.00 cm [ 0.60 - 1.00 ] PV Peak Tejinder 1.01m/s [ 0.40 - 0.80 ] IVSd MM 1.01 cm [ 0.60 - 1.00 ] RV S` 0.08m/s LA Dimension MM 4.53 cm [ 3.00 - 4.00 ] Lateral E` 0.14m/s [ 0.10 - 0.15 ] AoR Diam MM 4.07 cm [ 3.10 - 3.70 ] Septal E` 0.11m/s [ 0.08 - 0.15 ] LA Volume 44.79 ml [ 18.00 - 58.00 ] E` 0.12m/s LA Volume Index 20 cc/m2 [ 16 - 28 ] E/E` 5 ACS MM 1.96 cm [ 1.50 - 2.60 ] Tapse 1.62cm [ 1.71 - 5.00 ] RA Volume 26.33ml 2D/MM Value Range Doppler ValueRange - FINDINGS: Interpretation Site: Exam was interpreted at [facility]. Left Ventricle: Normal left ventricular size. Definity contrast agent used to visuallyenhance endocardial wall motion and contractility. Lot Number: [id number]. Normalglobal left ventricular systolic function. Impaired diastolic relaxation Grade I.Ejection fraction is measured at 53 %. Ejection Fraction is visually estimated to be 60 %.These segments of the LV are hypokinetic: anteroseptum segment. Right Ventricle: Normal right ventricular size. Left Atrium: The left atrium is normal in size. Right Atrium: The right atrium is normal in size. Atrial Septum: Normal atrial septum. Mitral Valve: Normal appearance of the mitral valve. Trivial regurgitation of the mitralvalve. Aortic Valve: Normal appearance of the aortic valve. Tricuspid Valve: Normal appearance of the tricuspid valve. Pulmonic Valve: Pulmonic valve not well visualized. Pericardium: Normal pericardium with no significant pericardial effusion. Aorta: Normal aortic root. IVC: The IVC is not well visualized. Pulmonary Artery: Normal pulmonary artery size. CONCLUSIONS: Normal left ventricular size. Definity contrast agent used to visuallyenhance endocardial wall motion and contractility. Lot Number: [id number]. Normalglobal left ventricular systolic function. Impaired diastolic relaxation Grade I.Ejection fraction is measured at 53 %. Ejection Fraction is visually estimated to be 60 %.These segments of the LV are hypokinetic: anteroseptum segment. Normal appearance of the mitral valve. Trivial regurgitation of the mitralvalve. Electronically Signed By: Peter Parra MD, [facility] 12/01/2024 4:20:58 PM CDT Marc Tejada MD CV ECHO PROCEDURES Final Result from Last 3 Months Insurance [employer] [facility] [id number] [employer] [facility] [id number] Advance Directives For more information, please contact: [phone] * Full Code (Latest Code Status on File) Date Activated Date Inactivated Comments 01/13/2024 2:37 PM 01/15/2024 3:21 PM * Full Code Date Activated Date Inactivated Comments 10/14/2023 12:31 PM 10/14/2023 9:56 PM * Full Code Date Activated Date Inactivated Comments 10/14/2023 12:31 PM 10/14/2023 12:31 PM Care Teams Medical Office Receptionist Assistant Relationship Specialty Start Date End Date Ovidio Martinez DO PCP - General Internal Medicine 10/03/18 Ovidio Martinez DO 10/03/18 Marc Tejada MD [address] [place] [address] Consulting Physician Cardiology 01/06/24 Mihai Hernadez MD [address] [facility] [address] [place] [address] Consulting Physician Vascular Surgery 01/15/24
--- OUTSIDE RECORDS SUMMARY | 2025-01-24 14:19 | XMS_ITS | Encounter Summary ---
Author Organization [facility] Facility Care Team Providers Care Starter Mechanic Name Role Phone Ovidio Martinez DO Primary Care Provider + [phone] Ovidio Martinez DO Primary Care Provider + [phone] Ovidio Martinez DO Unavailable [phone] Artur Elizabeth MD Unavailable [phone] Mihai Hernadez MD Unavailable Encounter Details Date Type Department Care Team (Latest Contact Info) Description 03/20/2018 Orders Only [facility] CLINCONV ProviderJose Luis MD [address] [place] [address] Social History Tobacco Use Types Packs/Day Years Used Date Smoking Tobacco: Never Assessed Sex and Gender Information Value Date Recorded Sex Assigned at Not on file Legal Sex Male 2:12 AM HRBP Gender Identity Not on file Sexual Orientation Not on file documented as of this encounter Plan of Treatment Not on file documented as of this encounter Procedures Procedure Name Priority Date/Time Associated Diagnosis Comments SCAN - PATHOLOGY 03/17/2018 12:0 0 AM HRBP documented in this encounter Results * SCAN - PATHOLOGY (03/17/2018 12:00 AM HRBP) Narrative 03/17/2018 12:00 AM HRBP Ordered by an unspecified provider. us Historical Provider Final Res ult documented in this encounter Visit Diagnoses Not on filedocumented in this encounter Care Teams Starter Mechanic Relationship Specialty Start Date End Date Ovidio Martinez, DO PCP - General 05/11/11 10/02/18 Ovidio Martinez DO PCP - General Internal Medicine 10/03/18 Ovidio Martinez DO 10/03/18 Artur Elizabeth MD [address] [facility] [address] [place] [address] Consulting Physician Cardiology 01/06/24 Mihai Hernadez MD [address] [facility] [address] [place] [address] Consulting Physician Vascular Surgery 01/15/24 documented as of this encounter
--- OUTSIDE RECORDS SUMMARY | 2025-01-24 14:19 | XMS_ITS | Encounter Summary ---
Author Organization [facility] Facility Care Team Providers Care Professor Of Anthropology Name Role Phone Ovidio Martinez DO Primary Care Provider + [phone] Ovidio Martinez DO Primary Care Provider + [phone] Ovidio Martinez DO Unavailable [phone] Artur Elizabeth MD Unavailable [phone] Mihai Hernadez MD Unavailable Encounter Details Date Type Department Care Team (Latest Contact Info) Description 03/10/2018 Orders Only [facility] CLINCONV ProviderJose Luis MD [address] [place] [address] Social History Tobacco Use Types Packs/Day Years Used Date Smoking Tobacco: Never Assessed Sex and Gender Information Value Date Recorded Sex Assigned at Not on file Legal Sex Male 2:12 AM IRIDOLOGIST Gender Identity Not on file Sexual Orientation Not on file documented as of this encounter Plan of Treatment Not on file documented as of this encounter Procedures Procedure Name Priority Date/Time Associated Diagnosis Comments PROCEDURE - RESULT 03/10/2018 12 :00 AM IRIDOLOGIST documented in this encounter Results * PROCEDURE - RESULT (03/10/2018 12:00 AM IRIDOLOGIST) Narrative 03/10/2018 12:00 AM IRIDOLOGIST Ordered by an unspecified provider. us Historical Provider Final Res ult documented in this encounter Visit Diagnoses Not on filedocumented in this encounter Care Teams Professor Of Anthropology Relationship Specialty Start Date End Date Ovidio Martinez DO PCP - General 05/11/11 10/02/18 Ovidio Martinez DO PCP - General Internal Medicine 10/03/18 Ovidio Martinez DO 10/03/18 Artur Elizabeth MD [address] [facility] [address] [place], [facility] [address] [place] [address] Consulting Physician Cardiology 01/06/24 Mihai Hernadez MD [address] [facility] [address] [place] [address] Consulting Physician Vascular Surgery 01/15/24 documented as of this encounter
--- OUTSIDE RECORDS SUMMARY | 2025-01-24 14:19 | XMS_ITS | Encounter Summary ---
Author Organization [facility] Facility Care Team Providers Care Prescriptionist Name Role Phone Ovidio Martinez DO Primary Care Provider + [phone] Ovidio Martinez DO Primary Care Provider + [phone] Ovidio Martinez DO Unavailable [phone] Artur Elizabeth MD Unavailable [phone] Mihai Hernadez MD Unavailable Encounter Details Date Type Department Care Team (Latest Contact Info) Description 03/14/2018 Orders Only [facility] CLINCONV ProviderJose Luis MD [address] [place] [address] Social History Tobacco Use Types Packs/Day Years Used Date Smoking Tobacco: Never Assessed Sex and Gender Information Value Date Recorded Sex Assigned at Not on file Legal 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 us Historical Provider Final Res ult documented in this encounter Visit Diagnoses Not on filedocumented in this encounter Care Teams Prescriptionist Relationship Specialty Start Date End Date Ovidio Martinez DO PCP - General 05/11/11 10/02/18 Ovidio Martinez DO PCP - General Internal Medicine 10/03/18 Ovidio Martinez DO 10/03/18 Artur Elizabeth MD [address] [facility] [address], [facility] [address] [place] [address] Consulting Physician Cardiology 01/06/24 Mihai Hernadez MD [address] [facility] [address] [place] [address] Consulting Physician Vascular Surgery 01/15/24 documented as of this encounter
--- OUTSIDE RECORDS SUMMARY | 2025-01-24 14:19 | XMS_ITS | Encounter Summary ---
Author Organization [facility] Facility Care Team Providers Care Tie Binder Name Role Phone Ovidio Martinez DO Primary Care Provider + [phone] Ovidio Martinez DO Primary Care Provider + [phone] Ovidio Martinez DO Unavailable [phone] Artur Elizabeth MD Unavailable [phone] Mihai Hernadez MD Unavailable Encounter Details Date Type Department Care Team (Latest Contact Info) Description 03/17/2018 Orders Only [facility] CLINCONV ProviderJose Luis MD [address] [place] [address] Social History Tobacco Use Types Packs/Day Years Used Date Smoking Tobacco: Never Assessed Sex and Gender Information Value Date Recorded Sex Assigned at Not on file Legal Sex Male 2:12 AM SOLAR ENERGY SYSTEM 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 us Historical Provider Final Res ult documented in this encounter Visit Diagnoses Not on filedocumented in this encounter Care Teams Tie Binder Relationship Specialty Start Date End Date Ovidio Martinez DO PCP - General 05/11/11 10/02/18 Ovidio Martinez DO PCP - General Internal Medicine 10/03/18 Ovidio Martinez DO 10/03/18 Artur Elizabeth MD [address] [facility] [address], [facility] [address] [place] [address] Consulting Physician Cardiology 01/06/24 Mihai Hernadez MD [address] [facility] [address] [place] [address] Consulting Physician Vascular Surgery 01/15/24 documented as of this encounter
--- OUTSIDE RECORDS SUMMARY | 2025-01-24 14:19 | XMS_ITS | Encounter Summary ---
Author Organization [facility] Healthcare Address [address] [place] [address] Care Team Providers Care Retail Pharmacy Merchandiser Name Role Phone Ovidio Martinez DO Primary Care Provider + [phone] Ovidio Martinez DO Unavailable [phone] Artur Elizabeth MD Unavailable [phone] Mihai Hernadez MD Unavailable Encounter Details Date Type Department Care Team (Latest Contact Info) Description 12/06/2024 Results Follow-Up [facility] Medical Group Cardiology [address] [place] [address] Artur Elizabeth MD [address] [facility] [address] [place] [address] Transthoracic Echo (TTE) Complete W Doppler/CF Social History Tobacco Use Types Packs/Day Years Used Date Smoking Tobacco: Heavy Smoker Cigarettes Smokeless Tobacco: Never Comments:Smoking History Pac ks/day: 1 Packs Alcohol Use Standard Drinks/Week Comments Yes 15 (1 standard drink = 0.6 oz pu re alcohol) [facility] Utilities Answer Date Recorded In the past 12 months has [employer], gas, oil, or water [employer] threatened to shut off services in your [...] often do you attend chur ch or restorationism services? Never 01/14/2024 Do you belong to any clubs o r organizations such as christianity groups, unions, fraternal or athletic groups, or [...] any time in the past 12 m [facility], were you homeless or living in a senior living (including now)? No 01/14/2024 Personal Safety Answer Date Recorded Have you ever been in or are you currently in a harmful physical or emotional relationship or is someone making you feel afraid or unsafe? Denies 01/13/2024 Sex and Gender Information Value Date Recorded Sex Assigned at Not on file Legal Sex Male 2:12 AM ROSE GROWER Gender Identity Not on file Sexual Orientation Not on file documented as of this encounter Plan of Treatment Not on file documented as of this encounter Visit Diagnoses Not on filedocumented in this encounter Care Teams Retail Pharmacy Merchandiser Relationship Specialty Start Date End Date Ovidio Martinez DO PCP - General Internal Medicine 10/03/18 Ovidio Martinez DO 10/03/18 Artur Elizabeth MD [address] [facility] [address] [facility] [address], [address] [place] [address] Consulting Physician Cardiology 01/06/24 Mihai Hernadez MD [address] [facility] [address] [place] [address] Consulting Physician Vascular Surgery 01/15/24 documented as of this encounter
--- NOTE | 2025-01-25 10:27 | WPDPFTINT ---
PFT Procedure Performed PFT Procedure Performed Plethysmography (Lung Vol) Diffusing Cap (DLCO) Flow Vol Loop Spirometry w/o Bronchodil PFT Interpretation This is a pulmonary function test with spirometry, plethysmography and diffusing capacity. The test was performed and results interpreted in accordance with the 2019 and 2005 ATS/ERS Task Force guidelines respectively using the Global Lung Function Initiative-2012 reference equations. Patient demonstrated good effort and cooperation. Reproducibility criteria were met. The quality of the spirometry maneuver was Grade B. Findings: Spirometry: There is decreased maximal expiratory airflow at all lung volumes with a concave expiratory flow tracing. The contour the inspiratory flow tracing is normal. The FVC is 4.04 L, 90% predicted. The FEV1 is 2.25 L, 64% predicted. The FEV1: FVC ratio is 56%. Plethysmography: The total lung capacity is 7.98 L, 118% predicted. The functional residual capacity is 5.17 L, 148% predicted. The residual volume is 3.94 L, 182% predicted. The residual volume: Total lung capacity ratio is 49%. Diffusing capacity: The diffusing capacity unadjusted for hemoglobin and carboxyhemoglobin is 20.9, 74% predicted. The diffusing capacity adjusted for alveolar volume is 3.80, 88% predicted. Impression: There is a moderate obstructive abnormality. The increase in residual volume to total lung volume ratio is consistent with hyperinflation from an obstructive abnormality. The diffusing capacity is normal. There are no prior studies for comparison
== END 2025-01-24 14:18 | disposition home or self-care (01) ==
LOC: ANHPFT 14:17
PROVIDERS: PCP Internal Medicine; Visit Provider Internal Medicine
DX: J43.1 Panlobular emphysema (principal); R06.00 Dyspnea, unspecified; R94.2 Abnormal results of pulmonary function studies
CPT/HCPCS: 94375; 94726; 94729